=== PATIENT | female | born 1960 | race Two or more races ===

== ENCOUNTER 2020-06-04 06:02 | Day surgery (SDC) | payer OTHER ==
[~2020-06-04 06:02] MED LIST: ALLEGRA ALLERG180 MG PO; CLONAZEPAM1 MG PO; CLONAZEPAM2 MG PO; GLIMEPIRIDE4 M1 PO; HYDROCHLOROTHIA25 MG PO; LIPITOR20 MG PO; LOSARTAN POTAS100 MG PO; MAXFE PO; PAXIL40 MG PO; TRADJENTA5 MG PO
== END 2020-06-04 12:55 | disposition home or self-care (01) ==
LOC: CIR.AMB 06:02
PROVIDERS: ATTEND Colon & Rectal Surgery
DX: C20 Malignant neoplasm of rectum (principal); Z20.828 Contact with and (suspected) exposure to other viral communicable diseases
CPT/HCPCS: 36561; C1751

== ENCOUNTER → 2020-09-05 | Outpatient (CLI) | payer OTHER | END | disposition home or self-care (01) | LOC: NUCLEAR 08:14 | PROVIDERS: ATTEND Internal Medicine | DX: M81.0 Age-related osteoporosis without current pathological fracture (principal) ==

== ENCOUNTER 2020-11-21 06:32 | Day surgery (SDC) | payer OTHER | END 2020-11-21 09:55 | disposition home or self-care (01) | LOC: AMB-ENDOS 06:32 | PROVIDERS: ATTEND Colon & Rectal Surgery | DX: C20 Malignant neoplasm of rectum (principal); Z20.822 Contact with and (suspected) exposure to COVID-19 ==

== ENCOUNTER 2021-01-20 08:00 | Inpatient (IN) | payer OTHER ==
[~2021-01-20] VITALS: Ht 170.2 cm; Wt 112.5 kg
[2021-02-01] MEDS ORDERED: ULTRAM50 MG PO (12:36)
== END 2021-02-01 16:31 | disposition home or self-care (01) | DRG 330 ==
LOC: SURH 01-27 07:00 → O/R 01-27 10:58 → SURH 01-27 17:50
PROVIDERS: ADMIT Colon & Rectal Surgery; ATTEND Colon & Rectal Surgery
PROC: 0DJD8ZZ Inspection of Lower Intestinal Tract, Via Natural or Artificial Opening Endoscopic (ICD-10-PCS; 2021-01-27)
PROC: 0DTP4ZZ Resection of Rectum, Percutaneous Endoscopic Approach (ICD-10-PCS; 2021-01-27)
PROC: 07BC4ZX Excision of Pelvis Lymphatic, Percutaneous Endoscopic Approach, Diagnostic (ICD-10-PCS; 2021-01-27)
PROC: 3E0F7SF Introduction of Other Gas into Respiratory Tract, Via Natural or Artificial Opening (ICD-10-PCS; 2021-01-27)
PROC: 0DBN4ZZ Excision of Sigmoid Colon, Percutaneous Endoscopic Approach (ICD-10-PCS; principal; 2021-01-27 07:00)
DX: C20 Malignant neoplasm of rectum (principal); K62.5 Hemorrhage of anus and rectum; K62.6 Ulcer of anus and rectum

== ENCOUNTER 2021-09-28 07:28 | Outpatient (CLI) | payer OTHER ==
[~2021-09-28 07:28] MED LIST changes: +ULTRAM50 MG PO
== END 2021-09-28 08:00 | disposition home or self-care (01) ==
LOC: NUCLEAR 07:28
PROVIDERS: ATTEND Internal Medicine
DX: C18.9 Malignant neoplasm of colon, unspecified (principal)
CPT/HCPCS: 78815; A9552

== ENCOUNTER 2023-09-01 19:56 | Inpatient (IN) | payer OTHER ==
[~2023-09-01] VITALS: Ht 170.2 cm; Wt 104.3 kg
[2023-09-01] MEDS ORDERED: FAMOTIDINE/PF 20 MG in 0.9 % SODIUM CHLORIDE 8 ML IV PUSH STA (20:38)
[2023-09-01] MEDS ORDERED: 0.9 % SODIUM CHLORIDE 1,000 ML IV SCH ×2 (20:45→23:30)
[2023-09-01 21:01] LABS: HEMATOCRIT 37.8 % (36.0-45.00); HEMOGLOBIN 12.6 g/dL (12.0-15.00); MEAN CELL VOLUME 88.1 fL (80.00-100.00); MEAN CORPUSCULAR HEMOGLOBIN 29.4 pg (27.00-32.0); MEAN CORPUSCULAR HGB CONC 33.3 g/dl (32.0-36.0); PLATELET COUNT 418 K/uL (150-450); RED BLOOD COUNT 4.29 M/uL (4.00-6.00); RED CELL DISTRIBUTION WIDTH 15.3 % (11.5-14.5)
[2023-09-01 21:24] LABS: ALBUMIN 3.2 gm/dL (3.4-5.0); BILIRUBIN TOTAL 0.81 mg/dL (0.3-1.2); CALCIUM 9.7 mg/dL (8.5-10.1); CREATININE SERUM 0.84 mg/dL (0.55-1.02); GFR 68.26; GLOBULINA 4.4 G/DL (2.4-3.5); POTASSIUM 3.79 mEq/L (3.5-5.1); TOTAL PROTEIN 7.6 gm/dL (6.4-8.2)
[2023-09-01] MEDS ORDERED: ONDANSETRON HCL 4 MG in 0.9 % SODIUM CHLORIDE 50 ML IV PRN (23:30)
[2023-09-01] MEDS ORDERED: ENALAPRILAT DIHYDRATE 1.25 MG/ML VIAL IV PRN (23:30)
[2023-09-01] MEDS ORDERED: MEPERIDINE HCL/PF 25 MG/ML VIAL IM PRN (23:30)
[2023-09-01] MEDS ORDERED: DEXTROSE 50 % IN WATER 0.5 G/ML DISP.SYRIN IV PRN (23:30)
[2023-09-01] MEDS ORDERED: INSULIN LISPRO 1,000 UNIT/10 ML UNITS SUBCUTANEO PRN (23:30)
[2023-09-01] MEDS ORDERED: ACETAMINOPHEN 500 MG GEL..CAP PO PRN (23:30)
[2023-09-02] MEDS ORDERED: PIPERACILLIN/TAZOBACTAM SODIUM 3.375 GM in DEXTROSE 5 % IN WATER 100 ML IV SCH
[2023-09-02 02:02] LABS: INR 1.05; PARTIAL THROMBOPLASTIN TIME 26.6 SECONDS (22.0-34.0)
[2023-09-02] MEDS ORDERED: FAMOTIDINE/PF 20 MG in 0.9 % SODIUM CHLORIDE 8 ML IV PUSH SCH (09:00)
[2023-09-02] MEDS ORDERED: ENOXAPARIN SODIUM 40 MG/0.4 ML SYRINGE SUBCUTANEO SCH (09:00)
[2023-09-02 14:48] LABS: HEMATOCRIT 36.6 % (36.0-45.00); MEAN CELL VOLUME 86.9 fL (80.00-100.00); MEAN CORPUSCULAR HEMOGLOBIN 28.6 pg (27.00-32.0); MEAN CORPUSCULAR HGB CONC 32.9 g/dl (32.0-36.0); PLATELET COUNT 375 K/uL (150-450); RED BLOOD COUNT 4.21 M/uL (4.00-6.00); RED CELL DISTRIBUTION WIDTH 15.6 % (11.5-14.5)
[2023-09-02 15:13] LABS: BILIRUBIN TOTAL 0.74 mg/dL (0.3-1.2); CALCIUM 9.1 mg/dL (8.5-10.1); CREATININE SERUM 0.59 mg/dL (0.55-1.02); GFR 102.62; GLOBULINA 3.6 G/DL (2.4-3.5); MAGNESIUM 2.4 mg/dL (1.8-2.4); PHOSPHOROUS 3.3 mg/dL (2.5-4.9); POTASSIUM 4.3 mEq/L (3.5-5.1); TOTAL PROTEIN 6.6 gm/dL (6.4-8.2)
[2023-09-02 15:18] LABS: C-REACTIVE PROTEIN 6.07 MG/DL (0.00-0.29)
[2023-09-02 18:58] LABS: PH,URINE 5.5 (5.0-8.0); URINE APPEARANCE Clear; URINE BILIRRUBIN Negative (NEGATIVE); URINE BLOOD Negative; URINE COLOR Dark Yellow; URINE LEUKOCYTE Negative; URINE NITRATE Negative; URINE PROTEIN Trace (NEGATIVE)
[2023-09-02 19:02] LABS: URINE BACTERIA 11.3 uL (0.0-1933); URINE EPITHELIAL CELLS 14.5 uL (0.0-38.8); URINE RBC 6.1 uL (0.0-20.8)
[2023-09-02 19:05] LABS: URINE GLUCOSE >=1000 MG/DL (NEGATIVE)
[2023-09-02] MEDS ORDERED: PIPERACILLIN/TAZOBACTAM SODIUM 3.375 GM VIAL IV ONE (23:16)
[2023-09-03] MEDS ORDERED: FAMOTIDINE/PF 20 MG/2 ML VIAL ONE (08:25)
[2023-09-04] MEDS ORDERED: POLYETHYLENE GLYCOL 3350 17 GM BLIST.PACK PO SCH (11:46)
[2023-09-06 06:44] LABS: HEMATOCRIT 35.1 % (36.0-45.00); HEMOGLOBIN 11.7 g/dL (12.0-15.00); MEAN CELL VOLUME 86.9 fL (80.00-100.00); MEAN CORPUSCULAR HGB CONC 33.4 g/dl (32.0-36.0); PLATELET COUNT 401 K/uL (150-450); RED BLOOD COUNT 4.04 M/uL (4.00-6.00); RED CELL DISTRIBUTION WIDTH 15.4 % (11.5-14.5)
[2023-09-06 07:09] LABS: ALBUMIN 2.9 gm/dL (3.4-5.0); BILIRUBIN TOTAL 0.49 mg/dL (0.3-1.2); CREATININE SERUM 0.59 mg/dL (0.55-1.02); GFR 102.62; GLOBULINA 3.5 G/DL (2.4-3.5); MAGNESIUM 2.5 mg/dL (1.8-2.4); PHOSPHOROUS 3.1 mg/dL (2.5-4.9); POTASSIUM 4.33 mEq/L (3.5-5.1); TOTAL PROTEIN 6.4 gm/dL (6.4-8.2)
[2023-09-06 07:12] LABS: C-REACTIVE PROTEIN 3.42 MG/DL (0.00-0.29)
== END 2023-09-06 13:28 | disposition home or self-care (01) | DRG 389 ==
LOC: ER 19:56 → SURH 23:30
PROVIDERS: General Practice; Internal Medicine Infectious Disease; ADMIT Colon & Rectal Surgery; ATTEND Colon & Rectal Surgery
PROC: BW21ZZZ Computerized Tomography (CT Scan) of Abdomen and Pelvis (ICD-10-PCS; principal; 2023-09-01)
PROC: 0DH683Z Insertion of Infusion Device into Stomach, Via Natural or Artificial Opening Endoscopic (ICD-10-PCS; 2023-09-01)
DX: K56.690 Other partial intestinal obstruction (principal); C20 Malignant neoplasm of rectum; R14.0 Abdominal distension (gaseous); I10 Essential (primary) hypertension; Z93.3 Colostomy status

== ENCOUNTER 2024-06-18 07:50 | Outpatient (CLI) | payer OTHER | END 2024-06-18 07:51 | disposition home or self-care (01) | LOC: NUCLEAR 07:50 | PROVIDERS: ATTEND Internal Medicine | DX: C18.9 Malignant neoplasm of colon, unspecified (principal) | CPT/HCPCS: 78816; A9552 ==

== ENCOUNTER 2024-11-07 05:13 | Day surgery (SDC) | payer OTHER ==
[2024-10-31 11:32] VITALS: BP 129/75
[~2024-11-07] VITALS: Ht 170.2 cm; Wt 106.1 kg
[~2024-11-07 05:13] MED LIST changes: +CIPRO500 MG PO; +CLARITIN10 M1 PO; +CLONAZEPAM1 M1 PO; +FLUCONAZOLE150 MG PO; +LOSARTAN-HCTZ1 EAC2 PO; +MIRABEGRON ER25 MG PO; +TRIJARDY XR 121 EACH PO
[2024-11-07] MEDS ORDERED: LIDOCAINE HCL 1%/EPINEPHRINE 20ML VIAL IJ ONE (07:09)
[2024-11-07] MEDS ORDERED: CEFAZOLIN SODIUM 1,000 MG VIAL ONE (07:09)
[2024-11-07] MEDS ORDERED: BUPIVACAINE HCL/MPF 0.5% 30ML VIAL ONE (07:09)
== END 2024-11-07 11:00 | disposition home or self-care (01) ==
LOC: CIR.AMB 05:13
PROVIDERS: ATTEND Colon & Rectal Surgery
DX: T82.594A Other mechanical complication of infusion catheter, initial encounter (principal); C20 Malignant neoplasm of rectum; Z88.6 Allergy status to analgesic agent; Z88.8 Allergy status to other drugs, medicaments and biological substances